=== PATIENT | male | born 1955 | race Caucasian/White ===

== ENCOUNTER 2020-04-04 21:20 | Inpatient (IN) | payer BC ==
[~2020-04-04] VITALS: Ht 172.7 cm; Wt 70.0 kg
[2020-04-04] MEDS ORDERED: aspirin 81mg tab.chew PO ONE (21:30)
--- NOTE | 2020-04-04 22:07 | NUR ---
patients daughter Roseanne called and confirmed with patient that with the password "[email or web address]." primary RN can talk with Roseanne about patients tx in ed
[2020-04-04 22:09] LABS: ALANINE AMINOTRANSFERASE 27 U/L (12-78); ALBUMIN 3.9 G/DL (3.4-5.0); ALKALINE PHOSPHATASE 91 IU/L (46-116); ANION GAP 9 (8-16); ASPARTATE AMINO TRANSFERASE 12 U/L (10-37); BILIRUBIN,TOTAL 0.9 MG/DL (0.1-1.0); BLOOD UREA NITROGEN 14 MG/DL (7-18); BUN/CREATININE RATIO 18.4 (5.4-32.0); CALCIUM 8.6 MG/DL (8.5-10.1); CHLORIDE 104 MMOL/L (99-107); CREATININE 0.76 MG/DL (0.60-1.10); GLUCOSE 108 MG/DL (70-104); POTASSIUM 3.6 MMOL/L (3.5-5.1); SODIUM 136 MMOL/L (135-145); TOTAL CARBON DIOXIDE 23.4 MMOL/L (24-32); TOTAL PROTEIN 7.8 G/DL (6.4-8.2); eGFR > 90 ML/MIN
[2020-04-04 22:22] LABS: BASOPHILS # (AUTO) 0.1 X10'3 (0-0.2); BASOPHILS % (AUTO) 1.4 % (0-1); EOSINOPHILS # (AUTO) 0.1 X10'3 (0-0.9); EOSINOPHILS % (AUTO) 1.1 % (0-6); HEMATOCRIT 44.6 % (42.0-52.0); HEMOGLOBIN 15.4 g/dl (14.0-17.9); LYMPHOCYTES # (AUTO) 0.9 X10'3 (1.1-4.8); MEAN CORPUSCULAR HGB CONC 34.4 g/dL (33.0-36.5); MEAN PLATELET VOLUME 7.8 FL (7.4-10.4); MONOCYTES # (AUTO) 0.4 X10'3 (0-0.9); MONOCYTES % (AUTO) 5.7 % (2-12); NEUTROPHILS # (AUTO) 5.7 X10'3 (1.8-7.7); NEUTROPHILS % (AUTO) 78.8 % (42-75); PLATELET COUNT 277 X10'3 (140-440); RED BLOOD COUNT 4.96 X10'6 (4.70-6.10); RED CELL DISTRIBUTION WIDTH 14.3 % (11.5-14.5); WHITE BLOOD COUNT 7.2 X10'3 (4.5-11.0)
[2020-04-05] VITALS (17 sets, daily range): BP systolic 95–122; BP diastolic 57–80
[2020-04-05] MEDS ORDERED: iohexol 350MG/ML 100ml bottle IV ONE (00:25)
[2020-04-05] MEDS ORDERED: NO HOME MEDS (00:40)
[2020-04-05 00:50] LABS: PARTIAL THROMBOPLASTIN TIME 40 SECONDS (22-32)
[2020-04-05] MEDS ORDERED: potassium CL 10mEq/100ml bag 100 ML IV PRN ×2 (02:25)
[2020-04-05] MEDS ORDERED: acetaminophen 325mg tablet PO PRN (02:25)
[2020-04-05] MEDS ORDERED: magnesium 2GM in 50ml NS 50 ML IV PRN (02:25)
[2020-04-05] MEDS ORDERED: magnesium 4gm in 100ml NS 100 ML IV PRN (02:25)
[2020-04-05] MEDS ORDERED: morphine 2 MG/ML inj. syringe IV PRN (02:25)
[2020-04-05] MEDS ORDERED: potassium Cl 20 mEq SR tablet PO PRN ×2 (02:25)
[2020-04-05] MEDS ORDERED: magnesium Cl slow-release 64mg tablet PO PRN (02:25)
[2020-04-05] MEDS ORDERED: ondansetron/PF 4mg/2ml inj IV PRN (02:25)
--- NOTE | 2020-04-05 02:57 | NUR ---
Patient in room ED. I have received report from HEENA Patino and had the opportunity to ask questions.
--- NOTE | 2020-04-05 03:14 | NUR ---
Pt arrived on the floor from ED via w/c. Pt transfered to hospital bed independently. Pt oriented to room. Tele monitor placed on pt. and MRSA swab collected. Pt denies having chest pain, but c/o of back pain.
[2020-04-05] MEDS ORDERED: aminophylline 250mg/10ml inj. IV PRN (04:50)
[2020-04-05] MEDS ORDERED: nitroGLYCERIN 0.4mg SUBLingual tab SL PRN (04:50)
[2020-04-05] MEDS ORDERED: regadenoson 0.4mg/5ml syringe IV ONE (04:50)
[2020-04-05] MEDS ORDERED: metoprolol tartrate 1mg/ml inj IV PRN (04:50)
--- NOTE | 2020-04-05 06:09 | NUR ---
Problems reprioritized. Patient report given, questions answered & plan of care reviewed with Junie Mera RN.
--- NOTE | 2020-04-05 06:15 | NUR ---
Patient in room PCU 3027. I have received report from Samantha NAIK and had the opportunity to ask questions and assume patient care.
[2020-04-05] MEDS: K and/or MAG REPLACEMENT MC SCH ×2 (08:00→18:25)
--- NOTE | 2020-04-05 10:20 | NUR ---
Patient back in room from Berenice scan. Awaiting results to eat and status of admitting. Will continue to monitor.
--- NOTE | 2020-04-05 10:57 | NUR ---
Paged Dr. Win PAGER ID: [phone] MESSAGE: Re: Hayden Mera. Pts stress test results are in. Can pt eat and what diet? Please Advise Junie Mera RN [phone]
--- NOTE | 2020-04-05 11:13 | NUR ---
Dr. Win called and Ok New Order for diet. Heart Healthy. Will continue to monitor.
[2020-04-05 11:25] LABS: ALBUMIN 3.6 G/DL (3.4-5.0); ANION GAP 6 (8-16); BLOOD UREA NITROGEN 11 MG/DL (7-18); BUN/CREATININE RATIO 16.4 (5.4-32.0); CALCIUM 8.9 MG/DL (8.5-10.1); CHLORIDE 105 MMOL/L (99-107); CREATININE 0.67 MG/DL (0.60-1.10); POTASSIUM 3.7 MMOL/L (3.5-5.1); SODIUM 137 MMOL/L (135-145); TOTAL CARBON DIOXIDE 25.8 MMOL/L (24-32); eGFR > 90 ML/MIN
[2020-04-05 11:26] LABS: BASOPHILS % (AUTO) 0.5 % (0-1); RED CELL DISTRIBUTION WIDTH 14.3 % (11.5-14.5)
[2020-04-05 11:27] LABS: GLUCOSE 91 MG/DL (70-104)
[2020-04-05 11:28] LABS: EOSINOPHILS # (AUTO) 0.1 X10'3 (0-0.9); EOSINOPHILS % (AUTO) 1.5 % (0-6); HEMATOCRIT 44.8 % (42.0-52.0); HEMOGLOBIN 15.7 g/dl (14.0-17.9); LYMPHOCYTES # (AUTO) 1.3 X10'3 (1.1-4.8); LYMPHOCYTES % (AUTO) 17.7 % (21-51); MEAN CORPUSCULAR HEMOGLOBIN 31.8 PG (27.0-31.0); MEAN CORPUSCULAR VOLUME 90.9 FL (78-98); MEAN PLATELET VOLUME 7.6 FL (7.4-10.4); MONOCYTES # (AUTO) 0.4 X10'3 (0-0.9); MONOCYTES % (AUTO) 5.9 % (2-12); NEUTROPHILS # (AUTO) 5.6 X10'3 (1.8-7.7); NEUTROPHILS % (AUTO) 74.4 % (42-75); PLATELET COUNT 271 X10'3 (140-440); RED BLOOD COUNT 4.93 X10'6 (4.70-6.10); WHITE BLOOD COUNT 7.5 X10'3 (4.5-11.0)
--- NOTE | 2020-04-05 16:52 | NUR ---
Paged Dr. Win promotional table spacer PAGER ID: [phone] MESSAGE: Re: Hayden Mera RM [id number] FYI Pt MRI, echo done. Please advise. Junie NAIK [phone]
--- NOTE | 2020-04-05 18:04 | NUR ---
Problems reprioritized. Patient report given, questions answered & plan of care reviewed with Chantale NAIK.
== END 2020-04-05 20:30 | disposition home or self-care (01) | DRG 74 ==
LOC: ER 21:20 → ED HOLD 04-05 02:25 → PCU 3S 04-05 03:10
PROVIDERS: ADMIT Internal Medicine; ATTEND Internal Medicine
PROC: 4A02XM4 Measurement of Cardiac Total Activity, External Approach (ICD-10-PCS; principal; 2020-04-05)
PROC: 3E033HZ Introduction of Radioactive Substance into Peripheral Vein, Percutaneous Approach (ICD-10-PCS; 2020-04-05)
DX: G54.2 Cervical root disorders, not elsewhere classified (principal); I11.0 Hypertensive heart disease with heart failure; I50.9 Heart failure, unspecified; I71.2 Thoracic aortic aneurysm, without rupture; Z87.891 Personal history of nicotine dependence; Z98.1 Arthrodesis status
CPT/HCPCS: 36415; 70450; 70551; 71045; 71275; 72141; 74174; 78452; 80048; 80053; 83880; 84484; 85025; 85610; 85730; 87081; 93005; 93017; 93306; 93308; 99285; A9500; G0378; J0280; J2785; Q9967

== ENCOUNTER 2022-11-18 05:25 | Day surgery (SDC) | payer MEDICARE ==
[2022-11-13 15:24] LABS: BASOPHILS % (AUTO) 0.7 % (0-1); EOSINOPHILS # (AUTO) 0.1 X10'3 (0-0.9); EOSINOPHILS % (AUTO) 1.3 % (0-6); LYMPHOCYTES # (AUTO) 1.3 X10'3 (1.1-4.8); LYMPHOCYTES % (AUTO) 19.3 % (21-51); MEAN CORPUSCULAR HEMOGLOBIN 32.8 PG (27.0-31.0); MEAN CORPUSCULAR HGB CONC 34.8 g/dL (33.0-36.5); MEAN CORPUSCULAR VOLUME 94.2 FL (78-98); MEAN PLATELET VOLUME 7.3 FL (7.4-10.4); MONOCYTES # (AUTO) 0.5 X10'3 (0-0.9); MONOCYTES % (AUTO) 7.1 % (2-12); NEUTROPHILS # (AUTO) 4.8 X10'3 (1.8-7.7); NEUTROPHILS % (AUTO) 71.6 % (42-75); PRE OP HEMOGLOBIN 15.3 g/dL (14.0-17.9); PRE OP PLATELET COUNT 308 X10'3 (140-440); RED BLOOD COUNT 4.67 X10'6 (4.70-6.10); RED CELL DISTRIBUTION WIDTH 13.4 % (11.5-14.5)
[2022-11-13 15:39] LABS: ALBUMIN 3.9 G/DL (3.4-5.0); ALKALINE PHOSPHATASE 96 IU/L (46-116); BLOOD UREA NITROGEN 13 MG/DL (7-18); BUN/CREATININE RATIO 17.8 (10.0-20.0); CALCIUM 9.1 MG/DL (8.5-10.1); CHLORIDE 103 MMOL/L (99-107); CREATININE 0.73 MG/DL (0.60-1.10); PRE OP ALT 33 U/L (30-65); PRE OP ANION GAP 7 (8-16); PRE OP AST 13 U/L (10-37); PRE OP POTASSIUM 3.6 MMOL/L (3.4-5.1); PRE OP SODIUM 138 MMOL/L (135-145); TOTAL CARBON DIOXIDE 28.1 MMOL/L (24-32); eGFR > 90 ML/MIN
[2022-11-13 15:55] LABS: PRE OP GLUCOSE 108 MG/DL (70-104)
[~2022-11-18] VITALS: Ht 172.7 cm; Wt 68.5 kg
[2022-11-18] VITALS (14 sets, daily range): BP systolic 101–128; BP diastolic 63–88
[~2022-11-18 05:25] MED LIST: FLO0.4C; ROSU20TA31 PO; ringers solution, lacted 1,000 ML IV SCH
[2022-11-18] MEDS ORDERED: famotidine 20mg tablet PO ONE (05:30)
[2022-11-18] MEDS ORDERED: cefazolin 2gm/D5W 100mL 100 ML IV ONE (05:30)
[2022-11-18] MEDS ORDERED: BUPIVAcaine/PF 2.5 mg/ml (0.25%) 30ml vial ONE (06:35)
[2022-11-18] MEDS ORDERED: LIDOcaine 1% 30ml preserv. free vial ONE (06:35)
[2022-11-18] MEDS ORDERED: fentaNYL/PF 50MCG/1 ML 2ML syringe ONE (07:35)
[2022-11-18] MEDS ORDERED: midazolam 1 mg/ML 2ml injection ONE (07:35)
[2022-11-18] MEDS ORDERED: meperidine/PF 25mg/ml syringe ONE (07:36)
[2022-11-18] MEDS ORDERED: propofol inj 20 ML IV ONE (07:38)
[2022-11-18] MEDS ORDERED: LIDOcaine 2% (20mg/ml) 5ml vial ONE (07:38)
[2022-11-18] MEDS ORDERED: ondansetron/PF 4mg/2ml inj ONE (07:38)
[2022-11-18] MEDS ORDERED: dexamethasone sod phosphate 4mg/ml inj. ONE (07:38)
[2022-11-18] MEDS ORDERED: sevoflurane 250ml liquid IH ONE (07:38)
[2022-11-18] MEDS ORDERED: LIDOcaine 2% jelly 6ml syringe ***for topical use only ONE (07:39)
[2022-11-18] MEDS ORDERED: rocuronium 10mg/ml inj IV ONE (07:58)
[2022-11-18] MEDS ORDERED: acetaminophen 1,000mg/100ml IV 100 ML IV ONE (08:04)
[2022-11-18] MEDS ORDERED: ondansetron/PF 4mg/2ml inj IV PRN (08:55)
[2022-11-18] MEDS ORDERED: morphine 2 MG/ML inj. syringe IV PRN (08:55)
[2022-11-18] MEDS ORDERED: proCHLORperazine 10 MG/2 ml inj IV PRN (08:55)
[2022-11-18] MEDS ORDERED: meperidine/PF 25mg/ml syringe IV PRN ×2 (08:55)
[2022-11-18] MEDS ORDERED: morphine 4 MG/ML inj SYRINge IV PRN (08:55)
[2022-11-18] MEDS ORDERED: ringers solution, lacted 1,000 ML IV SCH (08:55)
--- NOTE | 2022-11-18 09:33 | NUR ---
Received from OR via , accompanied by Anesthesiologist TRIP AND OR NURSE and report given by Anesthesiolgist. PT IS DROWSY YET REPSONDS TO VERBAL STIMULI. DENIES PAIN OR DISCOMFORT. 3 LAP SITES TO ABDOMEN WITH DERMABOND AND BANDAIDS. 20G TO RT HAND. Addendum: 11/18/22 at 0956 by Tala Mckeon RN Amended: Links added.
[2022-11-18] MEDS ORDERED: HYDROcodone/acetaminophen 5mg/325mg tablet PO PRN (09:55)
[2022-11-18] MEDS: meperidine/PF 25mg/ml syringe IV PRN ×2 (10:33→11:04)
[2022-11-18] MEDS ORDERED: LIDOcaine 2% 10ml TOPICAL JELLY (Urojet) TP ONE (12:05)
[2022-11-18] MEDS ORDERED: LidoCAINE 2% Topical Jelly 11mL syringe TOP ONE (12:15)
--- NOTE | 2022-11-18 12:33 | NUR ---
I HAVE REVIEWED D/C INSTRUCTIONS WITH PATIENT and they have verbalized understanding patient d/c home with all belongings and family gave transport home. PT NEEDED A PATE PLACED DUE TO INABILITY TO VOID. CONTROL OFFICER PROVIDED CATHETER CARE AND INSTRUCTIONS ON DISCONTINUING. PT VERBALIZES UNDERSTANDING. Addendum: 11/18/22 at 1426 by Tala Mckeon RN Amended: Links added.
== END 2022-11-18 12:33 | disposition home or self-care (01) ==
LOC: PAS 05:25
PROVIDERS: ATTEND Surgery
DX: K40.20 Bilateral inguinal hernia, without obstruction or gangrene, not specified as recurrent (principal); K42.9 Umbilical hernia without obstruction or gangrene; N40.0 Benign prostatic hyperplasia without lower urinary tract symptoms; J44.9 Chronic obstructive pulmonary disease, unspecified; F17.210 Nicotine dependence, cigarettes, uncomplicated; Z98.1 Arthrodesis status; Z85.46 Personal history of malignant neoplasm of prostate; Z79.899 Other long term (current) drug therapy; Z98.890 Other specified postprocedural states; Z80.42 Family history of malignant neoplasm of prostate; Z82.5 Family history of asthma and other chronic lower respiratory diseases
CPT/HCPCS: 36415; 49591; 49650; 80053; 82948; 85025; 93005; C1781; J0131; J0690; J1100; J2175; J2250; J2405; J2704; J3010; J3490; J7030; J7120; Z7506; Z7508; Z7512; A4215; A4618

== ENCOUNTER 2023-02-09 09:53 | Day surgery (SDC) | payer MEDICARE ==
[~2023-02-09] VITALS: Ht 172.7 cm; Wt 66.6 kg
[2023-02-09] VITALS (10 sets, daily range): BP systolic 84–114; BP diastolic 52–70; PULSE 56–62; RESP 16; TEMP 97.8; O2SAT 93–98
[~2023-02-09 09:53] MED LIST changes: -FLO0.4C; +FLO0.4C PO; +ROSU20TA2 PO; -ROSU20TA31 PO; -ringers solution, lacted 1,000 ML IV SCH
[2023-02-09] MEDS ORDERED: normal saline 1,000 ML IV SCH (10:15)
[2023-02-09] MEDS ORDERED: LORazepam 0.5 MG tablet PO PRN (10:15)
[2023-02-09] MEDS ORDERED: diphenhydrAMINE 25mg capsule PO PRN (10:15)
[2023-02-09] MEDS ORDERED: sodium bicarbonate 1meq/ml syr 150 ML in dextrose 5%-water 1,000 ML IV ONE (10:20)
[2023-02-09] MEDS ORDERED: verapamil 2.5 mg/ml inj IV ONE (12:19)
[2023-02-09] MEDS ORDERED: LIDOcaine 1% (10mg/ml) 2ml vial ONE (12:19)
[2023-02-09] MEDS ORDERED: heparin 1,000unit/ml 10ml vial 10 ML ONE (12:19)
[2023-02-09] MEDS ORDERED: nitroGLYCERIN-Tridil 50MG/D5W 250 ML IV ONE (12:19)
[2023-02-09] MEDS ORDERED: iohexol 350MG/ML 100ml bottle IV ONE (12:19)
[2023-02-09] MEDS ORDERED: midazolam 1 mg/ML 2ml injection ONE (12:19)
[2023-02-09] MEDS ORDERED: fentaNYL/PF 50MCG/1 ML 2ML syringe ONE (12:19)
[2023-02-09 12:29] LABS: ALBUMIN 3.3 G/DL (3.4-5.0); ANION GAP 9 (8-16); BLOOD UREA NITROGEN 15 MG/DL (7-18); BUN/CREATININE RATIO 23.1 (10.0-20.0); CALCIUM 8.8 MG/DL (8.5-10.1); CHLORIDE 107 MMOL/L (99-107); CREATININE 0.65 MG/DL (0.60-1.10); POTASSIUM 3.6 MMOL/L (3.5-5.1); SODIUM 141 MMOL/L (135-145); TOTAL CARBON DIOXIDE 25.2 MMOL/L (24-32); eGFR > 90 ML/MIN
[2023-02-09 12:36] LABS: GLUCOSE 106 MG/DL (70-104)
[2023-02-09] MEDS ORDERED: HYDROcodone/acetaminophen 5mg/325mg tablet PO PRN (14:20)
[2023-02-09] MEDS ORDERED: HYDROcodone/acetaminophen 10/325mg tab PO PRN (14:20)
== END 2023-02-09 16:20 | disposition home or self-care (01) ==
LOC: SSTAY O 09:53
PROVIDERS: ATTEND Student in an Organized Health Care Education/Training Program
DX: I71.21 Aneurysm of the ascending aorta, without rupture (principal); I25.10 Atherosclerotic heart disease of native coronary artery without angina pectoris; N40.0 Benign prostatic hyperplasia without lower urinary tract symptoms; F17.290 Nicotine dependence, other tobacco product, uncomplicated; Z79.899 Other long term (current) drug therapy
CPT/HCPCS: 36415; 80048; 93005; 93458; 99152; A6258; J1644; J2250; J3010; J3490; J7030; Q0163; Q9967; A6402; C1894

== ENCOUNTER 2023-12-22 15:31 | Emergency (ER) | payer MEDICARE ==
[~2023-12-22] VITALS: Ht 172.7 cm; Wt 70.5 kg
[~2023-12-22 15:31] MED LIST changes: -ROSU20TA2 PO
[2023-12-22 15:58] LABS: BASOPHILS % (AUTO) 0.5 % (0-1); EOSINOPHILS # (AUTO) 0.1 X10'3 (0-0.9); EOSINOPHILS % (AUTO) 1.4 % (0-6); HEMATOCRIT 41.8 % (42.0-52.0); HEMOGLOBIN 15.2 g/dl (14.0-17.9); LYMPHOCYTES % (AUTO) 17.7 % (21-51); MEAN CORPUSCULAR HEMOGLOBIN 35.8 PG (27.0-31.0); MEAN CORPUSCULAR HGB CONC 36.5 g/dL (33.0-36.5); MEAN CORPUSCULAR VOLUME 98.2 FL (78-98); MEAN PLATELET VOLUME 7.4 FL (7.4-10.4); MONOCYTES # (AUTO) 0.5 X10'3 (0-0.9); MONOCYTES % (AUTO) 8.8 % (2-12); NEUTROPHILS # (AUTO) 3.9 X10'3 (1.8-7.7); NEUTROPHILS % (AUTO) 71.6 % (42-75); PLATELET COUNT 275 X10'3 (140-440); RED BLOOD COUNT 4.25 X10'6 (4.70-6.10); RED CELL DISTRIBUTION WIDTH 13.5 % (11.5-14.5); WHITE BLOOD COUNT 5.5 X10'3 (4.5-11.0)
[2023-12-22 16:16] LABS: ALANINE AMINOTRANSFERASE 34 U/L (12-78); ALBUMIN 3.8 G/DL (3.4-5.0); ANION GAP 5 (8-16); ASPARTATE AMINO TRANSFERASE 12 U/L (10-37); BLOOD UREA NITROGEN 16 MG/DL (7-18); CALCIUM 8.7 MG/DL (8.5-10.1); CHLORIDE 106 MMOL/L (99-107); CREATININE 0.84 MG/DL (0.60-1.10); POTASSIUM 3.4 MMOL/L (3.5-5.1); SODIUM 139 MMOL/L (135-145); TOTAL CARBON DIOXIDE 27.9 MMOL/L (24-32); TOTAL PROTEIN 7.8 G/DL (6.4-8.2); eCRCL 81 ML/MIN; eGFR > 90 ML/MIN
[2023-12-22 16:17] LABS: ALKALINE PHOSPHATASE 80 IU/L (46-116)
[2023-12-22 16:24] LABS: PRO BRAIN NATRIURETIC PEPTIDE 93 PG/ML (0-125)
[2023-12-22 16:28] LABS: GLUCOSE 78 MG/DL (70-104)
[2023-12-22 16:30] VITALS: TEMP 98.3
[2023-12-22] MEDS: normal saline 1000ML IV soln IVB ONE (17:52)
[2023-12-22] MEDS: meclizine 12.5mg tablet PO ONE (17:52)
[2023-12-22 18:49] VITALS: PULSE 55
[2023-12-22] MEDS ORDERED: MECL-302 PO (19:13)
[2023-12-22 19:31] VITALS: BP 110/73; RESP 64; O2SAT 97
== END 2023-12-22 19:32 | disposition home or self-care (01) ==
LOC: ER 15:31
DX: R42 Dizziness and giddiness (principal); R06.02 Shortness of breath; R07.9 Chest pain, unspecified; I11.0 Hypertensive heart disease with heart failure; I50.9 Heart failure, unspecified; I25.2 Old myocardial infarction; J44.9 Chronic obstructive pulmonary disease, unspecified; Z85.9 Personal history of malignant neoplasm, unspecified; F17.210 Nicotine dependence, cigarettes, uncomplicated; Z79.899 Other long term (current) drug therapy
CPT/HCPCS: 36415; 71045; 80053; 83880; 84484; 85025; 93005; 96360; 99285; J7030; J8597

== ENCOUNTER 2024-04-27 10:18 | Inpatient (IN) | payer MEDICARE ==
[~2024-04-27] VITALS: Ht 170.2 cm; Wt 70.5 kg
[~2024-04-27 10:18] MED LIST changes: +MECL-302 PO
[2024-04-27] MEDS: HYDROmorphone 1 mg/ml syringe IV ONE (11:25)
[2024-04-27] MEDS: atorvastatin 20mg tablet PO SCH (11:26)
[2024-04-27 11:44] LABS: BASOPHILS % (AUTO) 0.3 % (0-1); EOSINOPHILS % (AUTO) 0.4 % (0-6); HEMATOCRIT 40.8 % (42.0-52.0); HEMOGLOBIN 14.1 g/dl (14.0-17.9); LYMPHOCYTES % (AUTO) 11.3 % (21-51); MEAN CORPUSCULAR HEMOGLOBIN 32.7 PG (27.0-31.0); MEAN CORPUSCULAR HGB CONC 34.6 g/dL (33.0-36.5); MEAN CORPUSCULAR VOLUME 94.4 FL (78-98); MEAN PLATELET VOLUME 7.4 FL (7.4-10.4); MONOCYTES # (AUTO) 0.4 X10'3 (0-0.9); MONOCYTES % (AUTO) 4.4 % (2-12); NEUTROPHILS # (AUTO) 7.4 X10'3 (1.8-7.7); NEUTROPHILS % (AUTO) 83.6 % (42-75); PLATELET COUNT 245 X10'3 (140-440); RED BLOOD COUNT 4.32 X10'6 (4.70-6.10); RED CELL DISTRIBUTION WIDTH 13.3 % (11.5-14.5); WHITE BLOOD COUNT 8.8 X10'3 (4.5-11.0)
[2024-04-27 12:01] LABS: ANION GAP 7 (8-16); BLOOD UREA NITROGEN 12 MG/DL (7-18); BUN/CREATININE RATIO 16.4 (10.0-20.0); CALCIUM 7.6 MG/DL (8.5-10.1); CHLORIDE 108 MMOL/L (99-107); CREATININE 0.73 MG/DL (0.60-1.10); POTASSIUM 3.6 MMOL/L (3.5-5.1); SODIUM 138 MMOL/L (135-145); TOTAL CARBON DIOXIDE 23.5 MMOL/L (24-32); eCRCL 91 ML/MIN; eGFR > 90 ML/MIN
[2024-04-27 12:03] LABS: GLUCOSE 102 MG/DL (70-104)
[2024-04-27] MEDS ORDERED: magnesium sulf-water 4G/100mL 100 ML IV PRN (12:35)
[2024-04-27] MEDS ORDERED: potassium Cl 40MEQ/1/2NS 520ml 520 ML IV PRN (12:35)
[2024-04-27] MEDS ORDERED: magnesium Cl slow-release 64mg tablet PO PRN (12:35)
[2024-04-27] MEDS ORDERED: potassium Cl 20 mEq SR tablet PO PRN (12:35)
[2024-04-27] MEDS ORDERED: mag hydrox/Alum hydrox/simeth 30ml oral suspension PO PRN (12:35)
[2024-04-27] MEDS ORDERED: magnesium hydroxide 30ml (MOM) UD suspension PO PRN (12:35)
[2024-04-27] MEDS ORDERED: acetaminophen 325mg tablet PO PRN (12:35)
[2024-04-27] MEDS ORDERED: magnesium sulf-water 2g/50mL 50 ML IV PRN (12:35)
[2024-04-27 12:51] LABS: BILIRUBIN,URINE NEGATIVE (Neg); CLARITY,URINE CLEAR (Clear); COLOR,URINE YELLOW (Yellow); GLUCOSE, URINE NEGATIVE (Neg); KETONES,URINE NEGATIVE (Neg); LEUKOCYTE ESTERASE ,URINE NEGATIVE (Neg); NITRITES, URINE NEGATIVE (Neg); OCCULT BLOOD,URINE NEGATIVE (Neg); PROTEIN,URINE NEGATIVE (Neg)
[2024-04-27 12:53] LABS: MAGNESIUM 2.1 MG/DL (1.5-2.4)
[2024-04-27 12:54] LABS: URINE AMPHETAMINE SCREEN NEGATIVE (Neg); URINE BARBITUATE SCREEN NEGATIVE (Neg); URINE BENZODIAZEPINES SCREEN NEGATIVE (Neg); URINE CANNABINOID SCREEN NEGATIVE (Neg); URINE COCAINE SCREEN NEGATIVE (Neg); URINE METHADONE SCREEN NEGATIVE (Neg); URINE OPIATE SCREEN POSITIVE (Neg); URINE PHENCYCLIDINE SCREEN NEGATIVE (Neg)
[2024-04-27] MEDS: normal saline 1000ml 1,000 ML IV SCH (12:54)
[2024-04-27 12:56] LABS: UA COLLECTION TYPE VOIDED
[2024-04-27 12:58] LABS: HEMOGLOBIN A1C 4.8 % (4.5-6.2)
[2024-04-27 13:55] LABS: CHOL/HDL RATIO 3.9 (0.00-4.99); CHOLESTEROL 163 MG/DL (0-200); HDL CHOLESTEROL 42 MG/DL (35-60); LDL CHOLESTEROL 107 MG/DL (50-100); TRIGLYCERIDES 55 MG/DL (20-135)
[2024-04-27] MEDS: morphine 2 MG/ML inj. syringe IV PRN (15:29)
[2024-04-27] MEDS: docusate sod 100mg capsule PO SCH (20:00)
[2024-04-27] MEDS: K and/or MAG REPLACEMENT MC SCH (20:00)
[2024-04-27] MEDS ORDERED: TERB250T89 PO (22:42)
[2024-04-27] MEDS: ondansetron/PF 4mg/2ml inj IV PRN (22:54)
[2024-04-28] VITALS (10 sets, daily range): BP systolic 90–136; BP diastolic 55–74; PULSE 54–64; RESP 15–22; TEMP 96.6–98.7; O2SAT 94–99
[2024-04-28] MEDS: morphine 2 MG/ML inj. syringe IV ONE (02:05)
[2024-04-28 07:18] LABS: ALANINE AMINOTRANSFERASE 29 U/L (12-78); ALBUMIN 2.7 G/DL (3.4-5.0); ALBUMIN/GLOBULIN RATIO 0.9 (1.1-1.5); ALKALINE PHOSPHATASE 62 IU/L (46-116); ANION GAP 5 (8-16); ASPARTATE AMINO TRANSFERASE 16 U/L (10-37); BILIRUBIN,TOTAL 0.8 MG/DL (0.1-1.0); BLOOD UREA NITROGEN 11 MG/DL (7-18); BUN/CREATININE RATIO 14.9 (10.0-20.0); CALCIUM 7.7 MG/DL (8.5-10.1); CHLORIDE 109 MMOL/L (99-107); CREATININE 0.74 MG/DL (0.60-1.10); MAGNESIUM 2.1 MG/DL (1.5-2.4); POTASSIUM 3.4 MMOL/L (3.5-5.1); SODIUM 141 MMOL/L (135-145); TOTAL CARBON DIOXIDE 26.7 MMOL/L (24-32); TOTAL PROTEIN 5.8 G/DL (6.4-8.2); eCRCL 89 ML/MIN; eGFR > 90 ML/MIN
[2024-04-28 08:39] LABS: GLUCOSE 90 MG/DL (70-104)
[2024-04-28] MEDS: morphine 2 MG/ML inj. syringe IV PRN (08:41)
[2024-04-28] MEDS: heparin, porcine 5000 units/ml vial SQ SCH (08:43)
[2024-04-28 08:52] LABS: BASOPHILS % (AUTO) 0.7 % (0-1); EOSINOPHILS # (AUTO) 0.2 X10'3 (0-0.9); EOSINOPHILS % (AUTO) 2.3 % (0-6); HEMATOCRIT 37.7 % (42.0-52.0); HEMOGLOBIN 12.8 g/dl (14.0-17.9); LYMPHOCYTES # (AUTO) 1.2 X10'3 (1.1-4.8); LYMPHOCYTES % (AUTO) 18.4 % (21-51); MEAN CORPUSCULAR HEMOGLOBIN 31.9 PG (27.0-31.0); MEAN CORPUSCULAR HGB CONC 33.9 g/dL (33.0-36.5); MEAN CORPUSCULAR VOLUME 94.2 FL (78-98); MEAN PLATELET VOLUME 7.8 FL (7.4-10.4); MONOCYTES # (AUTO) 0.4 X10'3 (0-0.9); MONOCYTES % (AUTO) 5.4 % (2-12); NEUTROPHILS # (AUTO) 4.9 X10'3 (1.8-7.7); NEUTROPHILS % (AUTO) 73.2 % (42-75); PLATELET COUNT 218 X10'3 (140-440); RED CELL DISTRIBUTION WIDTH 13.5 % (11.5-14.5); WHITE BLOOD COUNT 6.8 X10'3 (4.5-11.0)
[2024-04-28] MEDS: potassium Cl 20 mEq SR tablet PO PRN (13:14)
[2024-04-28] MEDS: atorvastatin 20mg tablet PO ONE (13:29)
[2024-04-28] MEDS: tamsulosin 0.4mg capsule PO SCH (21:02)
[2024-04-29 02:00] VITALS: BP 117/76; PULSE 68; RESP 18; TEMP 98.5; O2SAT 96
[2024-04-29 06:00] VITALS: BP 134/79; PULSE 61; RESP 16; TEMP 98.3; O2SAT 97
[2024-04-29 07:40] LABS: EOSINOPHILS # (AUTO) 0.1 X10'3 (0-0.9); MEAN PLATELET VOLUME 8.1 FL (7.4-10.4); MONOCYTES # (AUTO) 0.4 X10'3 (0-0.9)
[2024-04-29 08:22] LABS: ALANINE AMINOTRANSFERASE 30 U/L (12-78); ALBUMIN 3.1 G/DL (3.4-5.0); ALBUMIN/GLOBULIN RATIO 0.9 (1.1-1.5); ALKALINE PHOSPHATASE 74 IU/L (46-116); ANION GAP 5 (8-16); ASPARTATE AMINO TRANSFERASE 15 U/L (10-37); BILIRUBIN,TOTAL 0.9 MG/DL (0.1-1.0); BLOOD UREA NITROGEN 10 MG/DL (7-18); BUN/CREATININE RATIO 14.1 (10.0-20.0); CALCIUM 8.2 MG/DL (8.5-10.1); CHLORIDE 107 MMOL/L (99-107); CREATININE 0.71 MG/DL (0.60-1.10); MAGNESIUM 2.1 MG/DL (1.5-2.4); POTASSIUM 3.8 MMOL/L (3.5-5.1); SODIUM 138 MMOL/L (135-145); TOTAL CARBON DIOXIDE 25.6 MMOL/L (24-32); TOTAL PROTEIN 6.6 G/DL (6.4-8.2); eCRCL 93 ML/MIN; eGFR > 90 ML/MIN
[2024-04-29 08:55] VITALS: RESP 16; O2SAT 97
[2024-04-29 09:09] LABS: GLUCOSE 98 MG/DL (70-104)
[2024-04-29 10:04] LABS: MEAN CORPUSCULAR HEMOGLOBIN 32.2 PG (27.0-31.0); MEAN CORPUSCULAR HGB CONC 34.2 g/dL (33.0-36.5)
[2024-04-29 10:05] LABS: NEUTROPHILS % (AUTO) 84.7 % (42-75); PLATELET COUNT 226 X10'3 (140-440); RED CELL DISTRIBUTION WIDTH 13.3 % (11.5-14.5)
[2024-04-29 10:06] LABS: BASOPHILS % (AUTO) 0.7 % (0-1); EOSINOPHILS % (AUTO) 0.9 % (0-6); MONOCYTES % (AUTO) 4.7 % (2-12); NEUTROPHILS # (AUTO) 7.7 X10'3 (1.8-7.7)
[2024-04-29 10:07] LABS: BASOPHILS # (AUTO) 0.1 X10'3 (0-0.2); LYMPHOCYTES # (AUTO) 0.8 X10'3 (1.1-4.8); WHITE BLOOD COUNT 9.1 X10'3 (4.5-11.0)
[2024-04-29] MEDS: ketorolac trometh 15mg/ml vial 15 MG/ML ML IM ONE (10:07)
[2024-04-29] MEDS: folic acid 1mg tablet PO SCH (10:07)
[2024-04-29 10:08] LABS: RED BLOOD COUNT 4.36 X10'6 (4.70-6.10)
[2024-04-29 11:00] VITALS: BP 119/74; PULSE 61; RESP 16; TEMP 98; O2SAT 97
[2024-04-29 11:05] VITALS: RESP 16
[2024-04-29] MEDS ORDERED: CYCL-1 PO (12:42)
[2024-04-29] MEDS ORDERED: METH4TAB81 PO (12:42)
[2024-04-29] MEDS: methylPREDNISolone sod succ/PF 40mg inj. IV ONE (14:18)
== END 2024-04-29 16:11 | disposition home or self-care (01) | DRG 74 ==
LOC: ER 10:19 → ED HOLD 12:38 → PCU 3S 04-28 01:35
PROVIDERS: ADMIT Family Medicine; ATTEND Family Medicine
DX: M54.12 Radiculopathy, cervical region (principal); G45.9 Transient cerebral ischemic attack, unspecified; M47.892 Other spondylosis, cervical region; I11.0 Hypertensive heart disease with heart failure; I25.10 Atherosclerotic heart disease of native coronary artery without angina pectoris; I50.9 Heart failure, unspecified; F17.200 Nicotine dependence, unspecified, uncomplicated; J44.9 Chronic obstructive pulmonary disease, unspecified; I71.9 Aortic aneurysm of unspecified site, without rupture; I25.2 Old myocardial infarction; Z85.46 Personal history of malignant neoplasm of prostate; Z98.1 Arthrodesis status
CPT/HCPCS: 36415; 70450; 70551; 72141; 80048; 80053; 80061; 80305; 81003; 82607; 82948; 83036; 83735; 85025; 87081; 92508; 92616; 93306; 93880; 97110; 97116; 97161; 97530; 99291; A4565; G0378; J1171; J1644; J1885; J2270; J2405; J2919; J7030

== ENCOUNTER 2024-11-21 09:51 | Day surgery (SDC) | payer MEDICARE ==
[2024-11-16 12:09] LABS: BASOPHILS % (AUTO) 0.6 % (0-1); EOSINOPHILS # (AUTO) 0.1 X10'3 (0-0.9); EOSINOPHILS % (AUTO) 1.2 % (0-6); LYMPHOCYTES # (AUTO) 1.2 X10'3 (1.1-4.8); LYMPHOCYTES % (AUTO) 18.9 % (21-51); MEAN CORPUSCULAR HEMOGLOBIN 31.4 PG (27.0-31.0); MEAN CORPUSCULAR HGB CONC 34.4 g/dL (33.0-36.5); MEAN CORPUSCULAR VOLUME 91.3 FL (78-98); MEAN PLATELET VOLUME 7.7 FL (7.4-10.4); MONOCYTES # (AUTO) 0.3 X10'3 (0-0.9); NEUTROPHILS # (AUTO) 4.9 X10'3 (1.8-7.7); NEUTROPHILS % (AUTO) 74.3 % (42-75); PRE OP HEMATOCRIT 43.8 % (42.0-52.0); PRE OP HEMOGLOBIN 15.1 g/dL (14.0-17.9); PRE OP PLATELET COUNT 288 X10'3 (140-440); PRE OP WHITE BLOOD COUNT 6.6 10'3 (4.8-10.8)
[2024-11-16 13:13] LABS: ALBUMIN 3.7 G/DL (3.4-5.0); ALKALINE PHOSPHATASE 106 IU/L (46-116); BLOOD UREA NITROGEN 11 MG/DL (7-18); BUN/CREATININE RATIO 12.6 (10.0-20.0); CALCIUM 8.8 MG/DL (8.5-10.1); CHLORIDE 106 MMOL/L (99-107); CREATININE 0.87 MG/DL (0.60-1.10); PRE OP ALT 24 U/L (30-65); PRE OP ANION GAP 11 (8-16); PRE OP AST 8 U/L (10-37); PRE OP BILIRUB, TOTAL 1.3 MG/DL (0.0-1.0); PRE OP SODIUM 143 MMOL/L (135-145); TOTAL CARBON DIOXIDE 26.1 MMOL/L (24-32); TOTAL PROTEIN 7.3 G/DL (6.4-8.2); eGFR 87 ML/MIN
[2024-11-16 13:32] LABS: PRE OP GLUCOSE 116 MG/DL (70-104)
[2024-11-21] VITALS (7 sets, daily range): BP systolic 102–117; BP diastolic 68–83; PULSE 53–97; RESP 14–18; TEMP 97.6; O2SAT 96–100
[~2024-11-21] VITALS: Ht 170.2 cm; Wt 68.0 kg
[~2024-11-21 09:51] MED LIST changes: +BUPIVAcaine/PF 2.5mg/ml (0.25%) 10ml vial ONE; -FLO0.4C PO; +HYDR-3972 PO; +LIDOcaine 2% (20mg/ml) 5ml vial ONE; -MECL-302 PO; +famotidine 20mg tablet PO ONE; +ringers solution, lacted 1,000 ML IV SCH
[2024-11-21] MEDS: ceFAZolin 2gm in dextrose, iso 50 ML IV ONE (10:22)
[2024-11-21] MEDS ORDERED: LIDOcaine 0.5% (5mg/ml) 50ml vial ONE (11:40)
[2024-11-21] MEDS ORDERED: meperidine/PF 25mg/ml syringe IV PRN (11:45)
[2024-11-21] MEDS ORDERED: labetalol 20mg/4ml (5mg/ml) syringe IV PRN (11:45)
[2024-11-21] MEDS ORDERED: ringers solution, lacted 1,000 ML IV SCH (11:45)
[2024-11-21] MEDS ORDERED: morphine 2 MG/ML inj. syringe IV PRN (11:45)
[2024-11-21] MEDS ORDERED: proCHLORperazine 10 MG/2 ml inj IV PRN (11:45)
[2024-11-21] MEDS ORDERED: hydrALAZINE 20mg/ml inj. IV PRN (11:45)
[2024-11-21] MEDS ORDERED: morphine 4 MG/ML inj SYRINge IV PRN (11:45)
[2024-11-21] MEDS ORDERED: ondansetron/PF 4mg/2ml inj IV PRN (11:45)
[2024-11-21] MEDS ORDERED: HYDROmorphone/PF 0.2 MG/ML SYRINGE IV PRN ×2 (11:45)
[2024-11-21] MEDS ORDERED: LIDOcaine 2% (20mg/ml) 5ml vial ONE (13:04)
[2024-11-21] MEDS ORDERED: fentaNYL/PF 50MCG/1 ML 2ML syringe ONE (13:11)
[2024-11-21] MEDS ORDERED: propofol inj 20 ML IV ONE (13:19)
[2024-11-21] MEDS ORDERED: midazolam 1 mg/ML 2ml injection ONE (13:19)
--- NOTE | 2024-11-21 15:46 | OPERATIVE REPORT ---
Operative Report Providers to ~ Date of Procedure: November 21, 2024 Pre-Operative Diagnosis: Left wrist carpal and cubital tunnel syndrome Post-Operative Diagnosis Left wrist carpal tunnel syndrome. Left elbow cubital tunnel syndrome Procedure Performed Left wrist open carpal tunnel release. Ulnar neuroplasty at elbow with with in- situ decompression Surgeon: Mayur Ventura MD Mixing Operator None Anesthesiologist: Thao Rosenberg Type of Anesthesia: Regional Findings: Estimated Blood Loss: None Specimen Removed: None Description of Procedure: The patient is a 69-year-old man with carpal and cubital tunnel syndrome refractory to nonsurgical treatment. Surgery is indicated to relieve symptoms. Risks and benefits were discussed with the patient and he was brought to the operating room where the block was given. The arm was prepped and draped in usual manner. A 3 cm incision was made in the palm ulnar to the thenar crease in line with the radial side of the ring finger through skin and palmar fascia. Dissection was taken down to the transverse carpal ligament which was then opened in line with the skin incision. The median nerve was protected while the ligament was divided distally to the transverse arch and proximally to the wrist crease followed by division of the forearm fascia. The nerve was decompressed and the incision was irrigated and closed with nylon suture. The elbow was addressed with a an incision posterior to the medial epicondyle with blunt dissection down to the cubital tunnel. The nerve was palpated in the ulnar groove and carefully unroofed at that level. While protecting the nerve the fascia was incised and decompression was done with a distance of 5 cm above and below the elbow. The nerve was stable in the ulnar groove. Small bleeders were cauterized and thorough irrigation was done. The incision was then closed in layers. Marcaine was injected at both sites and sterile dressings were applied. The tourniquet was released the hand perfused well The patient was taken to the recovery room in stable condition and tolerated the procedure well MAYUR VENTURA Jr., MD November 21, 2024 15:46
== END 2024-11-21 14:22 | disposition home or self-care (01) ==
LOC: PAS 09:51
PROVIDERS: ATTEND Orthopaedic Surgery Hand Surgery
DX: G56.02 Carpal tunnel syndrome, left upper limb (principal); G56.22 Lesion of ulnar nerve, left upper limb; I25.2 Old myocardial infarction; F17.210 Nicotine dependence, cigarettes, uncomplicated; E78.5 Hyperlipidemia, unspecified; Z79.899 Other long term (current) drug therapy; Z98.890 Other specified postprocedural states
CPT/HCPCS: 36415; 64718; 64721; 80053; 82948; 85025; A4215; A6258; A6449; J0690; J2003; J2250; J2704; J3010; J3490; J7030; J7120; Z7506; Z7512; Z7610